=== PATIENT | male | born 1950 | race Hispanic/Latino ===

== ENCOUNTER 2017-11-02 10:13 | Emergency (ER) | payer OTHER ==
[2017-11-02] MEDS ORDERED: ASPIRIN 81MG TAB.CHEW ONE (10:47)
[2017-11-02] MEDS ORDERED: MECLIZINE HCL 25 MG TABLET ONE (10:48)
[2017-11-02] MEDS ORDERED: SODIUM CHLORIDE 0.9% 1000ML 1,000 ML IV ONE (10:48)
[2017-11-02] MEDS ORDERED: ONDANSETRON HCL 4 MG/2 ML VIAL ONE (10:48)
[2017-11-02 11:00] LABS: APPEARANCE,URINE CLEAR (CLEAR); BILIRUBIN,URINE NEGATIVE (NEGATIVE); COLOR,URINE YELLOW (YELLOW); GLUCOSE, URINE (UA) NEGATIVE (NEGATIVE); KETONES,URINE 5 mg/dL (NEGATIVE); LEUKOCYTE ESTERASE ,URINE NEGATIVE (NEGATIVE); NITRATE,URINE NEGATIVE (NEGATIVE); OCCULT BLOOD,URINE NEGATIVE (NEGATIVE); PROTEIN,URINE NEGATIVE (NEGATIVE); UROBILINOGEN,URINE 0.2 mg/dL (0.2-1.0)
[2017-11-02 11:04] LABS: BASOPHILS % (AUTO) 0.5 % (0.0-5.0); EOSINOPHILS % (AUTO) 0.3 % (0.0-8.0); HEMATOCRIT 43.8 % (42-54); MEAN CORPUSCULAR HEMOGLOBIN 29.9 pg (27.0-33.0); MEAN CORPUSCULAR HGB CONC 34.8 g/dL (32.0-36.0); MEAN CORPUSCULAR VOLUME 86.1 fL (79-99); MONOCYTES % (AUTO) 4.8 % (3.0-13.0); NEUTROPHILS % (AUTO) 86.3 % (40.0-77.0); PLATELET COUNT (AUTO) 242 K/uL (130-400); RED BLOOD CELL COUNT(AUTO) 5.08 MIL/uL (4.50-6.20); RED CELL DISTRIBUTION WIDTH 13.2 % (11.0-15.5); WHITE BLOOD COUNT (AUTO) 11.5 K/uL (4.8-10.8)
[2017-11-02 11:11] LABS: LYMPHOCYTES % (AUTO) 8.1 % (21.0-51.0)
[2017-11-02 11:15] LABS: CREATININE 0.9 mg/dL (0.5-1.5); POTASSIUM 3.2 mmol/L (3.5-5.1)
[2017-11-02 11:20] LABS: ALBUMIN 3.9 g/dL (3.5-5.0); BILIRUBIN,DIRECT 0.2 mg/dL (0.0-0.3); BILIRUBIN,TOTAL 0.7 mg/dL (0.2-1.0); TOTAL PROTEIN, SERUM 7.1 g/dL (6.0-8.3)
[2017-11-02 11:25] LABS: BACTERIA,URINE Rare /HPF (None Seen); RBC,URINE None Seen /HPF (0-1); WBC,URINE None Seen /HPF (0-1)
[2017-11-02 11:26] LABS: SQUAMOUS EPITHELIAL CELL,UR Rare /LPF (0-2)
[2017-11-02] MEDS ORDERED: MIDODRINE HCL 5 MG TABLET PO SCH (11:45)
[2018-04-02] MEDS ORDERED: AEC81 PO (16:26)
[2018-04-02] MEDS ORDERED: AMLODIPINE PO (16:26)
[2018-04-02] MEDS ORDERED: METAMUCIL PO (16:26)
[2018-04-02] MEDS ORDERED: LOSARTAN/HCTZ PO (16:26)
[2018-04-02] MEDS ORDERED: CITALOPRAM PO (16:26)
[2018-04-02] MEDS ORDERED: FINASTERIDE PO (16:26)
== END 2017-11-02 13:51 | disposition home or self-care (01) ==
LOC: EDH 10:13
DX: R42 Dizziness and giddiness (principal); R07.9 Chest pain, unspecified; I10 Essential (primary) hypertension; Z87.891 Personal history of nicotine dependence
CPT/HCPCS: 36415; 80048; 80076; 81001; 84484; 85025; 93005; 96361; 96374; 99285; J2405; J7030

== ENCOUNTER 2018-04-04 06:11 | Day surgery (SDC) | payer OTHER ==
[2018-04-02 15:25] VITALS: BP 143/78
[2018-04-02 15:36] LABS: BASOPHILS % (AUTO) 0.9 % (0.0-5.0); EOSINOPHILS % (AUTO) 3.2 % (0.0-8.0); HEMATOCRIT 40.7 % (42-54); LYMPHOCYTES % (AUTO) 23.6 % (21.0-51.0); MEAN CORPUSCULAR HEMOGLOBIN 30.3 pg (27.0-33.0); MEAN CORPUSCULAR VOLUME 86.5 fL (79-99); MONOCYTES % (AUTO) 7.3 % (3.0-13.0); PLATELET COUNT (AUTO) 229 K/uL (130-400); RED CELL DISTRIBUTION WIDTH 13.7 % (11.0-15.5); WHITE BLOOD COUNT (AUTO) 6.9 K/uL (4.8-10.8)
[2018-04-02 15:46] LABS: CREATININE 0.9 mg/dL (0.5-1.5); POTASSIUM 3.3 mmol/L (3.5-5.1)
[~2018-04-04] VITALS: Ht 176.5 cm; Wt 99.2 kg
[2018-04-04] VITALS (16 sets, daily range): BP systolic 107–141; BP diastolic 68–83
[~2018-04-04 06:11] MED LIST: AEC81 PO; AMLODIPINE PO; CEFTRIAXONE SODIUM 1 GM IVP SCH; CITALOPRAM PO; FINASTERIDE PO; LOSARTAN/HCTZ PO; METAMUCIL PO
[2018-04-04] MEDS ORDERED: LACTATED RINGERS 1000ML 1,000 ML IV ONE (06:59)
[2018-04-04] MEDS ORDERED: ROCURONIUM BROMIDE 10MG/1ML 5ML VL ONE (07:17)
[2018-04-04] MEDS ORDERED: ONDANSETRON HCL MDV 20ML 2 MG/ML VIAL ONE (07:17)
[2018-04-04] MEDS ORDERED: LIDOCAINE PF 2% 5ML ABBOJECT ONE (07:17)
[2018-04-04] MEDS ORDERED: MIDAZOLAM HCL 1 MG/ML 2ML VIAL ONE (07:17)
[2018-04-04] MEDS ORDERED: PROPOFOL 10 MG/ML 20ML VIAL IV ONE (07:17)
[2018-04-04] MEDS ORDERED: FENTANYL CITRATE PF 50 MCG/1 ML 2ML VIAL ONE ×2 (07:17→09:12)
[2018-04-04] MEDS ORDERED: FINA5TAB41 PO (07:36)
[2018-04-04] MEDS ORDERED: DOXA1TAB2 PO (07:36)
[2018-04-04] MEDS ORDERED: LOSA1TAB54 PO (07:36)
[2018-04-04] MEDS ORDERED: AMLO10TA2 PO (07:36)
[2018-04-04] MEDS ORDERED: SIMV20TA6 PO (07:36)
[2018-04-04] MEDS ORDERED: [UNRECOGNIZED DRUG - CODE] MC (07:36)
[2018-04-04] MEDS ORDERED: PHENYLEPHRINE HCL 10 MG/ML 1ML VIAL IV ONE (08:41)
[2018-04-04] MEDS ORDERED: KETOROLAC TROMETHAMINE 30MG/ML ONE (08:49)
[2018-04-04] MEDS ORDERED: MEPERIDINE-PF 25 MG/ML SYG ONE ×2 (10:17→10:32)
[2018-04-04] MEDS ORDERED: OPIUM/BELLADONNA ALKALOIDS 1 EACH SUPP.RECT RC ONE (10:26)
[2018-04-04] MEDS ORDERED: PHENAZOPYRIDINE HCL 200 MG TABLET ONE (11:26)
== END 2018-04-04 12:50 | disposition home or self-care (01) ==
LOC: DAH 06:11
PROVIDERS: ATTEND Urology
DX: N40.1 Benign prostatic hyperplasia with lower urinary tract symptoms (principal); N30.21 Other chronic cystitis with hematuria; R97.20 Elevated prostate specific antigen [PSA]; I10 Essential (primary) hypertension; F32.9 Major depressive disorder, single episode, unspecified; F41.9 Anxiety disorder, unspecified; Z79.899 Other long term (current) drug therapy; Z87.891 Personal history of nicotine dependence; Z82.49 Family history of ischemic heart disease and other diseases of the circulatory system
CPT/HCPCS: 36415; 52648; 80048; 85025; 88305; 93005; A4218; A4340; A4354; A4358; J0696; J1885; J2001; J2175 ×2; J2250; J2370; J2704; J3010 ×2; J3490; J7120 ×2

== ENCOUNTER 2020-07-25 06:50 | Day surgery (SDC) | payer OTHER ==
[2020-07-20 13:51] LABS: CREATININE 0.9 mg/dL (0.5-1.5); POTASSIUM 3.1 mmol/L (3.5-5.1)
[2020-07-20 14:09] LABS: BASOPHILS % (AUTO) 0.8 % (0.0-5.0); EOSINOPHILS % (AUTO) 2.3 % (0.0-8.0); HEMATOCRIT 43.2 % (42-54); LYMPHOCYTES % (AUTO) 26.5 % (21.0-51.0); MEAN CORPUSCULAR HEMOGLOBIN 30.1 pg (27.0-33.0); MEAN CORPUSCULAR HGB CONC 34.7 g/dL (32.0-36.0); MEAN CORPUSCULAR VOLUME 86.7 fL (79-99); MONOCYTES % (AUTO) 8.2 % (3.0-13.0); NEUTROPHILS % (AUTO) 61.9 % (40.0-77.0); PLATELET COUNT (AUTO) 270 K/uL (130-400); RED BLOOD CELL COUNT(AUTO) 4.98 MIL/uL (4.50-6.20); RED CELL DISTRIBUTION WIDTH 11.9 % (11.0-15.5)
[2020-07-20 14:15] LABS: INR 0.94 (0.85-1.15); PARTIAL THROMBOPLASTIN TIME 26.6 SEC (26.3-35.5); PROTHROMBIN TIME 10.2 SEC (9.6-11.6)
--- NOTE | 2020-07-22 16:15 | NUR ---
report called dr owens and reported potassium level. no new orders at this time.
[2020-07-22 17:27] VITALS: BP 152/92
[~2020-07-25] VITALS: Ht 180.3 cm; Wt 100.7 kg
[2020-07-25] VITALS (18 sets, daily range): BP systolic 125–150; BP diastolic 68–92
[~2020-07-25 06:50] MED LIST changes: -AEC81 PO; +AMLO-257 PO; -AMLODIPINE PO; +ASPI-1443 PO; +CEFAZOLIN SODIUM 1 GM VIAL IVP SCH; -CEFTRIAXONE SODIUM 1 GM IVP SCH; -CITALOPRAM PO; +FINA5TAB41 PO; -FINASTERIDE PO; +LOSA100T58 PO; -LOSARTAN/HCTZ PO; -METAMUCIL PO; +MULT-1367 PO; +OMEG100014 PO; +OMEP-420 PO; +SIMV-43 PO; +SODIUM CHLORIDE 0.9% 500ML 500 ML IV SCH; +UBID200C18 PO; +fluticasone NASAL; +vitamin b12 PO
[2020-07-25] MEDS ORDERED: LACTATED RINGERS 1000ML 1,000 ML IV ONE (07:26)
--- NOTE | 2020-07-25 07:30 | NUR ---
preop pt arrived amb in no distress. pt oriented to call light and room. will continue to monitor pt
[2020-07-25] MEDS ORDERED: LIDOCAINE PF 2% 5ML ABBOJECT ONE (07:36)
[2020-07-25] MEDS ORDERED: DEXAMETHASONE SOD PHOSPHATE 10MG/ML 1ML VIAL ONE (07:36)
[2020-07-25] MEDS ORDERED: SUCCINYLCHOLINE 200MG/10ML SYR ONE (07:36)
[2020-07-25] MEDS ORDERED: GLYCOPYRROLATE 1 MG/5 ML SYRINGE ONE (07:36)
[2020-07-25] MEDS ORDERED: PROPOFOL 10 MG/ML 20ML VIAL IV ONE (07:36)
[2020-07-25] MEDS ORDERED: MIDAZOLAM HCL 1 MG/ML 2ML VIAL ONE ×2 (07:37→07:59)
[2020-07-25] MEDS ORDERED: NEOSTIGMINE 5MG/5ML SYR IV ONE (07:37)
[2020-07-25] MEDS ORDERED: ONDANSETRON HCL 4 MG/2 ML VIAL ONE (07:37)
[2020-07-25] MEDS ORDERED: ROCURONIUM 10MG/1ML SYR 10 MG/ML ML ONE (07:37)
[2020-07-25] MEDS ORDERED: FENTANYL CITRATE PF 50 MCG/1 ML 2ML VIAL ONE ×2 (07:38→09:05)
[2020-07-25] MEDS ORDERED: BUPIVACAINE/PF 0.5% 30ML VIAL ONE (08:06)
[2020-07-25] MEDS ORDERED: MEPERIDINE-PF 25 MG/ML SYG ONE ×2 (09:52→10:05)
[2020-07-25] MEDS ORDERED: KETOROLAC TROMETHAMINE 30MG/ML ONE (10:14)
--- NOTE | 2020-07-25 10:40 | NUR ---
Pt received Pt received from PACU via stretcher accompanied by Vince RN. Pt drowsy but able to follow command. Pt calm at this time. Has bandaids with steri strips x4 to abdomen. Dry and intact. Pt hx of anxiety. Spouse at bedside. Pt calm at this time. VS wnl
--- NOTE | 2020-07-25 11:50 | NUR ---
D/C Pt prepared for discharge. Bandaids remain intact. Spouse at bedside. Pt states feeling abdominal discomfort but ok and says will take med at home. Discharge instructions (verbally and written), f/u appointment info and prescription given to spouse. D/C instructions and rx was explained to and pt. Both verbalized understanding. Pt was then dressed by and taken to private vehicle via w/c. Pt very grateful for care.
== END 2020-07-25 12:00 ==
LOC: DAH 06:50
PROVIDERS: ATTEND Surgery
DX: K80.12 Calculus of gallbladder with acute and chronic cholecystitis without obstruction (principal); Z20.828 Contact with and (suspected) exposure to other viral communicable diseases; I25.2 Old myocardial infarction; F41.9 Anxiety disorder, unspecified; I10 Essential (primary) hypertension; Z79.01 Long term (current) use of anticoagulants; Z79.82 Long term (current) use of aspirin; Z79.899 Other long term (current) drug therapy
CPT/HCPCS: 36415 ×2; 47562; 80048; 84132; 85025; 85610; 85730; 93005; A4215; A4221; A4222; A4223; A4615; A4649; A4663; A6260; C1769; C9803; J0330; J0690; J1100; J1885; J2001; J2175 ×2; J2250 ×2; J2405; J2704; J2710; J3010 ×2; J3490 ×2; J7030; J7120 ×2; U0003

== ENCOUNTER → 2021-01-16 | Outpatient (CLI) | payer OTHER ==
[~2021-01-16] MED LIST changes: -CEFAZOLIN SODIUM 1 GM VIAL IVP SCH; -SODIUM CHLORIDE 0.9% 500ML 500 ML IV SCH
== END | disposition home or self-care (01) ==
LOC: RAH 13:04
PROVIDERS: ATTEND Internal Medicine
DX: N40.0 Benign prostatic hyperplasia without lower urinary tract symptoms (principal); K57.30 Diverticulosis of large intestine without perforation or abscess without bleeding; I25.10 Atherosclerotic heart disease of native coronary artery without angina pectoris; N23 Unspecified renal colic; Z90.49 Acquired absence of other specified parts of digestive tract
CPT/HCPCS: 74176

== ENCOUNTER → 2024-10-23 | Outpatient (CLI) | payer OTHER ==
[~2024-10-23] MED LIST changes: -LOSA100T58 PO; +LOSA100T59 PO
[2024-10-23 12:49] LABS: BASOPHILS # (AUTO) 0.05 K/uL (0.00-0.20); BASOPHILS % (AUTO) 0.6 % (0.0-5.0); EOSINOPHILS % (AUTO) 1.3 % (0.0-8.0); HEMATOCRIT 43.6 % (42-54); IMMATURE GRANULOCYTE ABSOLUTE 0.02 K/uL (0-1); LYMPHOCYTES # (AUTO) 1.4 K/uL (1.0-4.8); LYMPHOCYTES % (AUTO) 17.6 % (21.0-51.0); MEAN CORPUSCULAR HEMOGLOBIN 30.1 pg (27.0-33.0); MEAN CORPUSCULAR HGB CONC 33.9 g/dL (32.0-36.0); MEAN CORPUSCULAR VOLUME 88.8 fL (79-99); MONOCYTES # (AUTO) 0.6 K/uL (0.1-1.0); NEUTROPHILS # (AUTO) 5.7 K/uL (1.8-7.7); NEUTROPHILS % (AUTO) 72.2 % (40.0-77.0); PLATELET COUNT (AUTO) 215 K/uL (130-400); RED BLOOD CELL COUNT(AUTO) 4.91 MIL/uL (4.50-6.20); RED CELL DISTRIBUTION WIDTH 12.2 % (11.0-15.5); WHITE BLOOD COUNT (AUTO) 7.8 K/uL (4.8-10.8)
[2024-10-23 12:59] LABS: CREATININE 1.4 mg/dL (0.5-1.3); POTASSIUM 4.3 mmol/L (3.5-5.1)
== END | disposition home or self-care (01) ==
LOC: LAB 11:46
PROVIDERS: ATTEND Urology
DX: N40.0 Benign prostatic hyperplasia without lower urinary tract symptoms (principal); R31.0 Gross hematuria; R31.29 Other microscopic hematuria
CPT/HCPCS: 36415; 80048; 84153; 85025

== ENCOUNTER → 2024-11-09 | Outpatient (CLI) | payer OTHER ==
[~2024-11-09] MED LIST changes: +IOHEXOL 350 MG/ML 100ML INFUS..BTL IV ONE
--- NOTE | 2024-11-09 09:51 | HMCIMG ---
Exam Type: CT UROGRAM (ABD/PEL WWO) Clinical Information: GROSS HEMATURIA Comparison: None Contrast: 100 cc's Isovue 370 IV, no complications or adverse reactions CT Dose Index (CTDI): 31.60 mGy Dose Length Product (DLP): 1740.80 total mGy-cm Findings: No evidence of nephro or ureterolithiasis is found. No hydronephrosis or ureteral dilatation is seen. The lung bases are clear. The stomach is unremarkable. It shows no wall thickening. No gross ulceration is seen. It is not overly distended. There are no surrounding inflammatory changes. No wall lesions are identified to suggest cancer. The spleen is unremarkable. It is not enlarged. The pancreas shows normal anatomy. It is not fatty replaced. It shows no lesions. The pancreatic duct is not dilated. The gallbladder is surgically absent. The adrenal glands are unremarkable. There is no enlargement. No lesions are noted. The liver is unremarkable. It shows no focal masses. The appendix is unremarkable. It shows no evidence of inflammation. No appendicolith is seen. The small bowel is unremarkable. There is no evidence of dilatation to suggest obstruction. No evidence of adynamic ileus is seen. There is no small bowel wall thickening to suggest enteritis. There is diverticulosis. There is no evidence of acute inflammation to suggest diverticulitis. The colon is otherwise unremarkable. The urinary bladder is unremarkable. There is no wall thickening to suggest tumor or inflammation. There are no intraluminal calculi. There are no diverticula. There is no evidence of chronic bladder outlet obstruction. There is no evidence of urinary bladder distention to suggest urinary retention. The prostate is significantly enlarged. The bony and vascular structures are unremarkable for the patient's age. IMPRESSION: No acute pathology. No urinary tract calculi. Prostatomegaly. Other findings as described. This study was performed using dose reduction techniques to include automated exposure control and/or adjustment of the mA and/or kV according to patient size.
== END | disposition home or self-care (01) ==
LOC: RAH 07:42
PROVIDERS: ATTEND Urology
DX: K57.30 Diverticulosis of large intestine without perforation or abscess without bleeding (principal); N40.0 Benign prostatic hyperplasia without lower urinary tract symptoms; R31.0 Gross hematuria
CPT/HCPCS: 74178; Q9967